=== PATIENT | male | born 1950 | race American Indian/Alaskan Native ===

== ENCOUNTER 2020-01-17 13:47 | Emergency (ER) | payer MEDICARE ==
--- NOTE | 2020-01-17 15:02 | Emergency Department Report ---
ED Medical Clearance HPI - General Chief complaint: Medical Clearance Stated complaint: HIGH POTASSIUM Time Seen by Provider: 01/17/20 14:34 Source: EMS Mode of arrival: Ambulatory - History of Present Illness Initial comments: 69-year-old male sent to the ED for elevated potassium. Patient was at Dr. Rodriguez's office for Vas-Cath placement. Labs done at his office resulted with the elevated potassium of 6.8, so patient sent to ED for admission, Vas-Cath placement, and dialysis. Charter Boat Operator: Dr Ariza Vascular: Dr Rodriguez Reason for Medical Clearance: laboratory abnormality Associated Symptoms: denies: shortness of breath Treatments Prior to Arrival: none Allergies/Adverse reactions: Allergies Allergy/AdvReac Type Severity Reaction Status Date / Time No Known Allergies Allergy Verified 01/17/20 17:17 ED Review of Systems ROS: Stated complaint: HIGH POTASSIUM Other details as noted in HPI Comment: All other systems reviewed and negative Respiratory: denies: shortness of breath ED Past Medical Hx - Social History Smoking Status: Never Smoker Substance Use Type: None ED Physical Exam - General Limitations: No Limitations General appearance: alert, in no apparent distress - Head Head exam: Present: atraumatic, normocephalic - Eye Eye exam: Present: normal appearance, EOMI - ENT ENT exam: Present: normal exam - Neck Neck exam: Present: normal inspection - Respiratory Respiratory exam: Present: normal lung sounds bilaterally. Absent: respiratory distress - Cardiovascular Cardiovascular Exam: Present: regular rate, normal rhythm - GI/Abdominal GI/Abdominal exam: Present: soft. Absent: distended, tenderness - Extremities Exam Extremities exam: Present: normal inspection - Neurological Exam Neurological exam: Present: alert, oriented X3 - Psychiatric Psychiatric exam: Present: normal affect, normal mood - Skin Skin exam: Present: warm, dry, intact, normal color ED Course Vital Signs 01/17/20 01/17/20 01/17/20 15:14 15:16 15:30 Pulse Rate 73 73 81 Respiratory 11 L 15 13 Rate Blood Pressure [Right] O2 Sat by Pulse 98 99 98 Oximetry 01/17/20 17:12 Pulse Rate 73 Respiratory 16 Rate Blood Pressure 145/75 [Right] O2 Sat by Pulse 97 Oximetry - Reevaluation(s) Reevaluation #1: 01/17/20 15:27 Labs are resulted with potassium of 4.3. I spoke with Dr. Rodriguez who states he will place the Vas-Cath now and patient will able to be discharged home. Patient scheduled to begin dialysis tomorrow at the [facility]. ED Medical Decision Making - Lab Data Result diagrams: 01/17/20 14:50 01/17/20 14:50 - EKG Data -: EKG Interpreted by Me - EKG Data Interpretation: other (LBBB, prolonged WA) - Medical Decision Making Vas-Cath placed. Patient will be discharged home. ED Disposition Clinical Impression: ESRD (end stage renal disease), Status post insertion of dialysis catheter Disposition: DC-01 TO HOME OR SELFCARE Is pt being admited?: No Condition: Stable Referrals: VIDYA MATOS MD [Staff Physician] - 01/18/20 Time of Disposition: 16:47
[2020-01-17 15:03] LABS: Basophils # (Auto) 0.1 K/mm3 (0.0-0.1); Eosinophils # (Auto) 0.1 K/mm3 (0.0-0.4); Eosinophils % (Auto) 1.8 % (0.0-4.3); Hematocrit 29.8 % (35.5-45.6); Hemoglobin 10.3 gm/dl (11.8-15.2); Lymphocytes # (Auto) 0.9 K/mm3 (1.2-5.4); Lymphocytes % (Auto) 13.2 % (13.4-35.0); Mean Corpuscular HGB Conc 35 % (32-34); Mean Corpuscular Volume 77 fl (84-94); Monocytes # (Auto) 0.3 K/mm3 (0.0-0.8); Monocytes % (Auto) 4.3 % (0.0-7.3); Platelet Count 256 K/mm3 (140-440); Red Blood Count 3.87 M/mm3 (3.65-5.03); Red Cell Distribution Width 14.9 % (13.2-15.2)
[2020-01-17 15:20] LABS: Calcium 8.8 mg/dL (8.4-10.2)
[2020-01-17] MEDS ORDERED: HEPARIN/NS 5000 UNIT/500ML 500 ML IR ONE (16:05)
[2020-01-17] MEDS ORDERED: HEPARIN 10,000 UNITS/10 ML VIAL ONE (16:05)
[2020-01-17] MEDS ORDERED: SODIUM CHLORIDE 0.9% 250ML 250 ML ONE (16:05)
[2020-01-17] MEDS ORDERED: LIDOCAINE (2%) 20 MG/1 ML VIAL 20 ML MDV INFILTRATI ONE (16:05)
[2020-01-17] MEDS: fentaNYL 100 MCG/2 ML INJ ONE ×2 (16:20→16:31)
[2020-01-17] MEDS ORDERED: ceFAZolin/Water 2 GM/20 ML 2 GM/20 ML SYRINGE IV ONE (16:20)
[2020-01-17] MEDS: MIDAZOLAM 2 MG/2 ML INJ ONE ×2 (16:20→16:31)
[2020-01-17] MEDS ORDERED: LIDOCAINE 1%/EPINEPHRINE 1:100,000 VIAL (20 ML) INFILTRATI ONE (16:24)
[2020-01-17] MEDS ORDERED: DESMOPRESSIN ACETATE 20 MCG in SODIUM CHLORIDE 0.9% 50 ML IV ONE (16:50)
--- NOTE | 2020-01-17 16:50 | Consultation ---
History of Present Illness - Reason for Consult Consult date: 01/17/20 ESRD Requesting physician: SHIVAM GARCIA - History of Present Illness 69-year-old male with multiple medical issues with end-stage renal disease requiring PermCath placement with outpatient dialysis scheduled for tomorrow. Potassium was 6.8 at outside facility and has been rechecked and is 4.3 at [facility]. Plan for PermCath placement today. Past History Past Medical History: arthritis, cancer, dialysis, ESRD, hyperthyroidism, hypothyroidism Past Surgical History: Other (Cystectomy with ileal conduit) Social history: no significant social history Family history: no significant family history Review of Systems All systems: negative (see HPI) Exam - Constitutional Vitals: Temp Pulse Resp BP Pulse Ox 81 13 98 01/17/20 15:30 01/17/20 15:30 01/17/20 15:30 General appearance: Present: no acute distress - EENT Eyes: Present: EOM intact ENT: hearing intact - Neck Neck: Present: supple - Respiratory Respiratory effort: normal - Psychiatric Psychiatric: appropriate mood/affect, cooperative Results - Labs CBC & Chem 7: 01/17/20 14:50 01/17/20 14:50 Labs: Abnormal lab results 01/17/20 01/17/20 Range/Units 14:50 14:50 Hgb 10.3 L (11.8-15.2) gm/dl Hct 29.8 L (35.5-45.6) % MCV 77 L (84-94) fl MCH 27 L (28-32) pg MCHC 35 H (32-34) % Lymph % (Auto) 13.2 L (13.4-35.0) % Lymph # 0.9 L (1.2-5.4) K/mm3 Seg Neutrophils % 79.7 H (40.0-70.0) % Carbon Dioxide 18 L (22-30) mmol/L BUN 27 H (9-20) mg/dL Creatinine 4.8 H (0.8-1.5) mg/dL Glucose 102 H (75-100) mg/dL Assessment and Plan 69-year-old male with multiple medical issues with chronic kidney disease which is advanced to end-stage renal disease with potassium checked in the office coming back at 6.8. Patient's potassium at hospital was 4.3. Plan for PermCath placement today.
--- NOTE | 2020-01-17 16:53 | Operative Report ---
Operative Report Operative Report: EXAM: 1. Ultrasound-guided puncture of the right internal jugular vein 2. Fluoroscopic-guided placement of a right internal jugular tunneled cuffed hemodialysis catheter. DATE: 01/17/2020 INDICATION: End-stage renal disease requiring hemodialysis access MEDICATIONS: Please see nursing report for full details. DEVICES: 23 cm tip to cuff 15 Fr dual lumen hemodialysis catheter REVENUE ACCOUNTANT: DANK JAMES MD CONTRAST: None PROCEDURE: The risks, benefits, and alternatives were discussed and informed consent was obtained. The patient was transported to the angiography suite in satisfactory/stable condition and was transported onto the angiography table. The patient's right internal jugular vein was assessed with ultrasound and determined to be patent prior to procedure. The patient was prepped and draped in a sterile fashion. The puncture site was anesthetized. Under sonographic guidance, the right internal jugular vein was punctured with a 21-gauge micropuncture needle and a 0.018 inch wire was advanced into the inferior vena cava. The micropuncture needle was exchanged for a transitional dilator and the wire was retracted into the right atrium to demetrius intravascular distance. The wire and inner dilator were removed. 0.035 inch wire was advanced through the transitional dilator into the inferior vena cava. A suitable exit site was identified on the patient's chest inferior and lateral to the venotomy. The site was anesthetized with local anesthetic and the track was anesthetized. Dermatotomy was made. The PermCath was attached to the tunneling device and tunneled between the dermatotomy to the venotomy. Over the 0.035 inch wire, serial dilatation was performed with ultimate placement of a peel-away sheath. The catheter was advanced through the peel- away sheath after the wire was removed and positioned centrally under fluoroscopic guidance. The peel-away sheath was removed. 3-0 Vicryl suture was used to close the venotomy and Dermabond was then applied. 2-0 Ethilon suture was used to secure the catheter at the dermatotomy. The catheter was charged with heparin 1000 units/mL of space. Sterile dressing and Biopatch applied. Due to trace oozing, DDAVP ordered and pressure dressing applied. The patient was transferred from the angiography suite back to the floor in stable condition. FINDINGS: 1. Excellent flow was obtained through the dialysis catheter with 20 mL syringes. 2. The catheter tip is in the right atrium. IMPRESSION: 1. Successful ultrasound and fluoroscopically guided placement of a right internal jugular tunneled cuffed hemodialysis catheter.
--- NOTE | 2020-01-17 16:54 | Event Note ---
Date: 01/17/20 Patient has trace oozing from his dermatotomy site from PermCath placement. Ordered DDAVP. Placed pressure dressing. Instructed patient to leave on until outpatient dialysis completed tomorrow.
[2020-01-17 17:13] VITALS: BP 145/75
== END 2020-01-17 17:36 | disposition home or self-care (01) ==
LOC: ED 13:47
DX: N18.6 End stage renal disease (principal); Z99.2 Dependence on renal dialysis
CPT/HCPCS: 36415; 36558; 77001; 80048; 85025; 93005; 93010; 99283; C1750; J0690; J1644; J2250; J3010; J7050; J2597

== ENCOUNTER 2020-03-08 09:34 | Day surgery (SDC) | payer MEDICARE ==
[~2020-03-08 09:34] MED LIST: LIDOCAINE MPF (2%) 20 MG/1 ML VIAL 5 ML ONE; ONDANSETRON 4 MG/2 ML INJ ONE; SODIUM CHLORIDE 0.9% 1000 ML 1,000 ML IV SCH; ceFAZolin/Water 2 GM/20 ML 2 GM/20 ML SYRINGE IV NR; dexAMETHasone 20 MG/5 ML VIAL ONE; fentaNYL 100 MCG/2 ML INJ ONE; propofoL 200 MG/20 ML VIAL IV ONE
--- NOTE | 2020-03-08 10:12 | Anesthesia Day of Surgery ---
Anesthesia Day of Surgery - Day of Surgery Patient Examined: Yes Patient H&P Reviewed: Yes Patient is NPO: Yes Beta Blockers: Yes (carvedilol this morning)
--- NOTE | 2020-03-08 10:12 | Anesthesia Consultation ---
Anesthesia Consult and Med Hx Date of service: 03/08/20 - Airway Anesthetic Teeth Evaluation: Dentures (1 reminaing tooth) ROM Head & Neck: Adequate Mental/Hyoid Distance: Adequate Mallampati Class: Class III Intubation Access Assessment: Possibly Difficult - Pulmonary Exam CTA: Yes - Cardiac Exam Cardiac Exam: RRR - Pre-Operative Health Status ASA Pre-Surgery Classification: ASA3 Proposed Anesthetic Plan: General - Pulmonary Hx Smoking: Yes (quit 20 yrs ago) Hx Respiratory Symptoms: No - Cardiovascular System Hx Hypertension: Yes (took carvedilol this morning) Hx Heart Attack/AMI: No (CHF EF 30-35% on TTE 12/2019) Hx Percutaneous Transluminal Coronary Angioplasty (PTCA): No Hx Cardia Arrhythmia: No (LBBB on EKG) Hx Pacemaker: No Hx Internal Defibrillator: No Hx Valvular Heart Disease: No Hx Peripheral Vascular Disease: Yes (LLE) - Central Nervous System CVA: No - Gastrointestinal Hx Gastroesophageal Reflux Disease: No - Endocrine Hx End Stage Renal Disease: Yes (last HD 03/07/2020) Hx Liver Disease: No Hx Non-Insulin Dependent Diabetes: Yes (diet controlled) Hx Thyroid Disease: No - Hematic Hx Anemia: Yes - Other Systems Hx Cancer: Yes (hx bladder, prostate ca s/p radical cystectomy) Hx Obesity: No - Additional Comments Anesthesia Medical History Comments: No hx anesthetic complications. Legally blind. Son signs consents on his behalf.
[2020-03-08 10:28] LABS: Hemoglobin 12.6 gm/dl (11.8-15.2); Mean Corpuscular HGB Conc 32 % (32-34); Mean Corpuscular Volume 79 fl (84-94); Platelet Count 237 K/mm3 (140-440); Red Blood Count 4.96 M/mm3 (3.65-5.03); Red Cell Distribution Width 15.8 % (13.2-15.2)
[2020-03-08 10:32] LABS: Calcium 8.5 mg/dL (8.4-10.2)
[2020-03-08] MEDS ORDERED: ONDANSETRON 4 MG/2 ML INJ ONE (10:54)
[2020-03-08] MEDS ORDERED: GLYCOPYRROLATE 0.4 MG/2 ML INJ ONE (10:54)
[2020-03-08] MEDS ORDERED: propofoL 200 MG/20 ML VIAL IV ONE (10:54)
[2020-03-08] MEDS ORDERED: fentaNYL 100 MCG/2 ML INJ ONE (10:54)
[2020-03-08] MEDS ORDERED: fentaNYL 100 MCG/2 ML INJ IV PRN (11:00)
[2020-03-08] MEDS ORDERED: BUPIVACAINE/PF (0.5%) 5 MG/1 ML 10 ML VIAL INFILTRATI ONE ×2 (11:09→12:36)
[2020-03-08] MEDS ORDERED: PROTAMINE SULFATE 50 MG/5 ML INJ ONE (11:10)
[2020-03-08] MEDS ORDERED: HEPARIN 10,000 UNITS/10 ML VIAL ONE (11:10)
[2020-03-08] MEDS ORDERED: SODIUM CHLORIDE 0.9% 250ML 250 ML ONE ×2 (11:11→12:26)
[2020-03-08] MEDS ORDERED: rifAMPin 600 MG VIAL ONE (12:16)
[2020-03-08] MEDS ORDERED: SODIUM CHLORIDE P/F VIAL 10 ML 10 ML ONE (12:19)
[2020-03-08] MEDS ORDERED: HEPARIN 10,000 UNITS/10 ML VIAL IV ONE (12:35)
[2020-03-08] MEDS ORDERED: rifAMPin 600 MG VIAL IV ONE (12:37)
[2020-03-08] MEDS ORDERED: SODIUM CHLORIDE 0.9% IRR 1,500 ML BOTTLE IR ONE (12:37)
[2020-03-08] MEDS ORDERED: SODIUM CHLORIDE 0.9% 250 ML IVPB IV ONE (12:37)
--- NOTE | 2020-03-08 13:35 | Short Stay Summary ---
Short Stay Documentation Date of service: 03/08/20 Narrative H&P: See short stay form - Allergies and Medications Current Medications: Allergies No Known Allergies Allergy (Verified 01/17/20 17:17) Home Medications Medication Instructions Recorded Confirmed Last Taken Type Docusate Calcium 240 mg PO DAILY 03/07/20 03/08/20 03/07/20 21:00 History Ergocalciferol (Vitamin D2) 50,000 unit PO DAILY 03/07/20 03/08/20 03/07/20 21:00 History [Vitamin D2] Ferrous Sulfate [Iron 325 MG] 325 mg PO DAILY 03/07/20 03/08/20 03/07/20 21:00 History Folic Acid/Vit B Complex and C 800 mcg PO DAILY 03/07/20 03/08/20 03/07/20 21:00 History [Dialyvite 800 Chewable Wafer] Latanoprost 0.005% [Xalatan 0.005%] 1 drop OU QPM 03/07/20 03/08/20 03/07/20 21:00 History Pravastatin [Pravachol] 40 mg PO DAILY 03/07/20 03/08/20 03/07/20 21:00 History Sertraline [Zoloft] 25 mg PO QDAY 03/07/20 03/08/20 03/07/20 21:00 History Tamsulosin [Flomax] 0.4 mg PO QDAY 03/07/20 03/08/20 03/07/20 21:00 History amLODIPine [Norvasc] 5 mg PO DAILY 03/07/20 03/08/20 03/07/20 21:00 History carvediloL [Coreg] 6.25 mg PO BID 03/07/20 03/08/20 03/08/20 08:30 History Active Medications Fentanyl (Sublimaze) 50 mcg IV Q5MIN PRN PRN Reason: Pain , Severe (7-10) Stop: 03/08/20 16:00 Cefazolin Sodium (Ancef/Sterile Water 2 Gm/20 Ml) 2 gm in 20 mls @ 80 mls/hr IV PREOP NR; Protocol Stop: 03/08/20 23:59 Sodium Chloride (Nacl 0.9% 1000 Ml) 1,000 mls @ 42 mls/hr IV DIRECT LISY Stop: 03/08/20 23:59 Last Admin: 03/08/20 10:10 Dose: 42 mls/hr Documented by: - Brief post op/procedure progress note Date of procedure: 03/08/20 Pre-op diagnosis: End-Stage Renal Disease Post-op diagnosis: same Procedure: Creation of Left Brachial Artery to Axillary Vein Arteriovenous Graft with 6 mm Bovine Artegraft Anesthesia: GETMisha Surgeon: ETHEL MORILLO Estimated blood loss: minimal Pathology: none Condition: stable - Disposition Condition at discharge: Good Disposition: DC-01 TO HOME OR SELFCARE Short Stay Discharge Plan Activity: other (No heavy lifting with left arm for 2 weeks) Wound: open to air, keep clean and dry, other (Okay to wash the wounds with soap and water but do not soak in water for 2 weeks.) Follow up with: ETHEL MORILLO MD [Staff Physician] - 14 Days Prescriptions: HYDROcodone/APAP 7.5-325 [[place] 7.5/325] 1 each PO Q6HR PRN #40 tablet PRN Reason: Pain
--- NOTE | 2020-03-08 13:36 | Operative Report ---
Operative Report Operative Report: Date of procedure: 03/08/2020 Pre-operative diagnosis: End-Stage Renal Disease Post-operative diagnosis: Same Procedure(s): 1. Creation of Left Brachial Artery to Axillary Vein AV Graft with 6 mm Bovine Graft Surgeon: Guero Scott MD Engine Research Engineer: None Anesthesia: General Endotracheal Anesthesia EBL: Minimal Counts: Correct Complications: None Condition: Stable Findings: Successful Creation of Left Arm AV Graft Specimen: None Indication: The patient is a 69-year-old male with a history of end-stage renal disease who is currently on hemodialysis through a right internal jugular permacath. He is in need of long-term dialysis access and is a candidate for creation of a left arm arteriovenous graft. He and his son were given the risk, benefits, and alternative procedures and consented to the procedure. Description of Procedure: The patient was brought to the operating room and laid in supine position after general endotracheal anesthesia was achieved the left arm was prepped and draped in normal sterile fashion. A longitudinal incision was made on the medial aspect of the arm just proximal to the antecubital crease and carried down to the brachial artery using sharp dissection. The brachial artery was dissected out circumferentially both proximally and distally and controlled with vessel loops. A second incision was created in longitudinal fashion on the medial aspect of the arm just distal to the axillary crease and carried down to the axillary vein using sharp dissection. Axillary vein was dissected out circumferentially and controlled with a vessel loop. I then used a Lisa-Wick tunneler to tunnel from the brachial artery incision to the axillary vein incisi on and then put an 6 mm bovine through the tunnel. I infused with heparinized saline to ensure that it was not twisted or kinked. I put the brachial artery vessel loops on tension controlling the flow and then created an arteriotomy using an 11 blade and Hoffman scissors. I beveled the graft and created an end-to-side anastomosis using 6-0 Prolene running fashion. I clamped the graft just proximal to the anastomosis and then released the vessel loops restoring flow in the brachial artery. I placed quick clot in incision to achieve hemostasis. I cut the proximal end of the graft to the appropriate length and beveled the graft in preparation for a venous anastomosis. I controlled the axillary vein a Satinsky clamp and created a venotomy using an 11 blade and Hoffman scissors. I created an end to side anastomosis using a 6-0 Prolene in running fashion. Prior to completing the anastomosis I flushed the graft to ensure there was no thrombus and then completed the anastamosis. I released all clamps allowing flow into the AV graft which had an excellent thrill. I packed the wound with quick clot to achieve hemostasis. I anesthetized both wounds with 0.5% Marcaine and then closed both wounds in 2 layers using 3-0 Vicryl in running fashion in the deep dermal layer and 4-0 Monocryl in running fashion the subcuticular layer. I dressed both wounds with Dermabond. The patient jovannie rated the procedure well all sponge needle and instrument counts were correct the patient was taken to recovery in stable condition.
--- NOTE | 2020-03-08 15:10 | Post Anesthesia Evaluation ---
- Post Anesthesia Evaluation Patient Participated: Yes Airway Patent: Yes Stable Respiratory Function: Yes Nausea/Vomiting: No Temp > 96.8F: Yes Pain Manageable: Yes Adequeate Hydration: Yes Anesthesia Complications: No
[2020-03-08 17:54] VITALS: BP 152/84
== END 2020-03-08 09:35 | disposition home or self-care (01) ==
LOC: OR 09:34
PROVIDERS: ATTEND Surgery Vascular Surgery
DX: I13.2 Hypertensive heart and chronic kidney disease with heart failure and with stage 5 chronic kidney disease, or end stage renal disease (principal); E11.22 Type 2 diabetes mellitus with diabetic chronic kidney disease; N18.6 End stage renal disease; I50.9 Heart failure, unspecified; Z87.891 Personal history of nicotine dependence; Z79.899 Other long term (current) drug therapy; E11.51 Type 2 diabetes mellitus with diabetic peripheral angiopathy without gangrene; E11.39 Type 2 diabetes mellitus with other diabetic ophthalmic complication; H40.9 Unspecified glaucoma; E78.00 Pure hypercholesterolemia, unspecified; D64.9 Anemia, unspecified; Z98.890 Other specified postprocedural states; Z85.89 Personal history of malignant neoplasm of other organs and systems; Z85.46 Personal history of malignant neoplasm of prostate
CPT/HCPCS: 36415; 36830; 80048; 82962; 85027; C1757; C1768; J0690; J1100; J1644; J2405; J2704; J3010; J3490; J7030; J7050; J2720